=== PATIENT | female | born 1975 | race Caucasian/White ===

== ENCOUNTER → 2017-09-01 | Outpatient (CLI) | payer OTHER | END | disposition home or self-care (01) | LOC: C.PAPS 16:45 | PROVIDERS: ATTEND Physician Assistant | DX: Z01.419 Encounter for gynecological examination (general) (routine) without abnormal findings (principal) ==

== ENCOUNTER → 2017-09-06 | Outpatient (CLI) | payer OTHER ==
--- NOTE | 2017-09-06 15:56 | MAMMOGRAPHY REPORT ---
BILATERAL DIGITAL DIAGNOSTIC MAMMOGRAM TOMOSYNTHESIS WITH CAD AND TARGETED RIGHT ULTRASOUND: 8 CLINICAL HISTORY: The patient reports a palpable lump in her right breast for approximately 2 years, which has not significantly changed in that time. TECHNIQUE: Breast tomosynthesis in addition to standard 2D mammography was performed. Current study was also evaluated with a Computer Aided Detection (CAD) system. Bilateral CC and MLO 2-D and tomosy nthesis images were obtained. COMPARISON: No prior exams were available for comparison. BREAST COMPOSITION: There are scattered areas of fibroglandular density in both breasts. FINDINGS: A triangle marker palm the site of the palpable lump in the right upper inner quadrant. T here are no suspicious masses or other suspicious mammographic abnormalities noted in the region of t he palpable lump. The remainder of both breasts demonstrate no suspicious masses, calcifications, or areas of architectural distortion. A few scattered bilateral punctate/round benign-appearing calcif ications are noted. Targeted ultrasound was performed of the area of the palpable lump pointed out by the patient, in the right breast at approximately 1:00, 4 cm from the nipple. Sonographically normal tissue is seen in this region, without evidence of a mass or other suspicious sonographic abnormality. IMPRESSION: ACR BI-RADS CATEGORY 2: BENIGN, TARGETED ULTRASOUND ACR BI-RADS CATEGORY 2: BENIGN No suspicious mammographic or sonographic abnormality at the site of the palpable right breast lump p ointed out by the patient. There is no mammographic or targeted sonographic evidence of malignancy. Recommend clinical follow-up for the palpable right breast lump, and recommend routine bilateral scr eening mammograms in one year. The patient has been verbally notified of the results. Approximately 10% of breast cancers are not detected with mammography. A negative mammographic report should not delay biopsy if a clinically suggestive mass is present. Maite Irizarry M.D. ah/:09/06/2017 08:59:58 [employer] Control: Nicole DONIS)(Susana), [facility] letter sent: Normal 1/2 BI-RADS Code: ACR BI-RADS Category 2: Benign Ultrasound BI-RADS: ACR BI-RADS Category 2: Benign
== END | disposition home or self-care (01) ==
LOC: C.MAMM 08:19
PROVIDERS: ATTEND Physician Assistant
DX: N63.10 Unspecified lump in the right breast, unspecified quadrant (principal)

== ENCOUNTER → 2017-10-12 | Outpatient (CLI) | payer OTHER ==
[2017-10-12 09:33] LABS: BASO % 0.5 %; BASO ABS # 0.03 K/uL (0-0.2); EOS ABS # 0.06 K/uL (0-0.5); HEMATOCRIT 38.3 % (37-47); HEMOGLOBIN 12.8 g/dL (12.0-16.0); IG# 0.01 K/uL (0.00-0.02); LYMPH % 34.3 %; LYMPH ABS # 2.01 K/uL (1.2-3.4); MEAN CELL VOLUME 83.1 fL (80-100); MEAN CORPUSCULAR HEMOGLOBIN 27.8 pg (25-34); MEAN CORPUSCULAR HGB CONC 33.4 g/dl (32-36); MEAN PLATELET VOLUME 10.3 fL (7.4-10.4); MONO ABS # 0.41 K/uL (0.11-0.59); NEUT ABS # 3.34 K/uL (1.4-6.5); PLATELET COUNT 217 K/uL (130-400); RED CELL DISTRIBUTION WIDTH CV 14.1 % (11.5-14.5); RED CELL DISTRIBUTION WIDTH SD 42.4 fL (36.4-46.3); WHITE BLOOD COUNT 5.86 K/uL (4.8-10.8)
[2017-10-12 09:47] LABS: ALBUMIN 3.6 gm/dl (3.4-5.0); ALT/SGPT 23 U/L (12-78); BLOOD UREA NITROGEN 15 mg/dl (7-18); CALCIUM 8.4 mg/dl (8.5-10.1); CARBON DIOXIDE 25 mmol/L (21-32); CHOLESTEROL 177 mg/dl (0-200); CREATININE 0.86 mg/dl (0.60-1.20); GLUCOSE 86 mg/dl (70-99); POTASSIUM 3.9 mmol/L (3.5-5.1); SODIUM 137 mmol/L (136-145)
[2017-10-12 09:58] LABS: ALKALINE PHOSPHATASE 68 U/L (45-117); AST/SGOT 17 U/L (15-37); LDL CHOLESTEROL CALCULATED 106 mg/dl; TOTAL PROTEIN 7.6 gm/dl (6.4-8.2)
== END | disposition home or self-care (01) ==
LOC: C.LAB 07:47
PROVIDERS: ATTEND Internal Medicine Pulmonary Disease
DX: Z00.00 Encounter for general adult medical examination without abnormal findings (principal); T78.1XXA Other adverse food reactions, not elsewhere classified, initial encounter; X58.XXXA Exposure to other specified factors, initial encounter